=== PATIENT | male | born 1970 | race African-American/Black ===

== ENCOUNTER 2023-12-18 19:42 | Emergency (ER) | payer SELFPAY ==
[2023-12-18 19:49] VITALS: BP 114/75; PULSE 87; RESP 20; TEMP 98.8; BMI 25.7
[2023-12-18] MEDS ORDERED: LIDOCAINE 4% PATCH TP ONE (20:26)
[2023-12-18] MEDS ORDERED: METHOCARBAMOL 500 MG TABLET ONE (20:26)
[2023-12-18] MEDS ORDERED: ONDANSETRON *ODT* 4 MG TABLET ONE (20:26)
[2023-12-18] MEDS ORDERED: ACETAMINOPHEN 500 MG TABLET (FP) ONE (20:28)
[2023-12-18] MEDS: ACETAMINOPHEN 500 MG TABLET (FP) PO ONE (20:34)
[2023-12-18] MEDS: METHOCARBAMOL 750 MG TAB PO ONE (20:35)
[2023-12-18] MEDS: ONDANSETRON 4 MG TABLET PO ONE (20:35)
[2023-12-18] MEDS: LIDOCAINE 4% PATCH TP ONE (20:35)
[2023-12-18] MEDS: ONDANSETRON *ODT* 4 MG TABLET SL ONE (20:36)
[2023-12-18] MEDS: LIDOCAINE PATCH REMOVAL MC SCH (22:17)
== END 2023-12-18 23:18 | disposition home or self-care (01) ==
LOC: JER 19:42
DX: S13.9XXA Sprain of joints and ligaments of unspecified parts of neck, initial encounter (principal); S09.90XA Unspecified injury of head, initial encounter; R11.2 Nausea with vomiting, unspecified; W01.198A Fall on same level from slipping, tripping and stumbling with subsequent striking against other object, initial encounter
CPT/HCPCS: 70450-TC; 72125-TC; 73030-TC-LT-FY; 73610-TC-RT-FY; 73630-TC-RT-FY; 93005; 93010; 99284-25; Q0162